=== PATIENT | male | born 1985 | race Asian ===

== ENCOUNTER 2019-04-23 13:19 | Emergency (ER) | payer OTHER ==
[2019-04-23 13:35] VITALS: BP 120/75
--- NOTE | 2019-04-23 13:35 | ED Physician Documentation ---
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 He is able to walk and bear weight with a limp. No other injuries.) Review of Systems Constitutional: reports: Reviewed and negative Throat: reports: Reviewed and negative Cardiac: reports: Reviewed and negative Respiratory: reports: Reviewed and negative PD PAST MEDICAL HISTORY - Present Medications Home Medications: Ambulatory Orders Medication Instructions Recorded Confirmed No Known Home Medications 04/23/19 04/23/19 - Allergies Allergies/Adverse Reactions: Allergies Allergy/AdvReac Type Severity Reaction Status Date / Time No Known Drug Allergies Allergy Verified 04/23/19 13:34 PD ED PE NORMAL - Vitals Vital signs reviewed: Yes - General General: Alert and oriented X 3, No acute distress - Extremities Extremities: Other (There is an abrasion with mild tenderness over the mid first metatarsal dorsally and some swelling there.) - Neuro Neuro: Alert and oriented X 3, Normal speech Results - Vitals Vitals: Vital Signs - 24 hr 04/23/19 13:31 Temperature 36.7 C Heart Rate 62 Respiratory 14 Rate Blood Pressure 120/75 O2 Saturation 100 Oxygen O2 Source Room air - Rads (name of study) L foot 3v Radiology: EMP read contemporaneously (normal) Departure - Departure Disposition: 01 Home, Self Care Clinical Impression: Crushing injury of foot, left Qualifiers: Encounter type: initial encounter Qualified Code(s): S97.82XA - Crushing injury of left foot, initial encounter Condition: Good Record reviewed to determine appropriate education?: Yes Instructions: ED Crush Injury Toe No Fx Comments: [place] not [place]. Return for new or worsening symptoms. Forms: Activity restrictions
--- NOTE | 2019-04-23 14:40 | XRAY Report ---
Reason: foot injury Procedure Date: 04/23/2019 Accession Number: [id number] / [id number] Procedure: XR - Foot 3 View LT CPT Code: FULL RESULT: EXAM: LEFT FOOT RADIOGRAPHY EXAM DATE: 04/23/2019 02:09 PM. CLINICAL HISTORY: Foot injury. COMPARISON: None. TECHNIQUE: 3 views. FINDINGS: Bones: Normal. No fractures or bone lesions. Joints: Normal. No subluxations. Soft Tissues: Normal. No soft tissue swelling. IMPRESSION: Normal foot radiography. [facility]
== END 2019-04-23 14:57 | disposition home or self-care (01) ==
LOC: ED 13:19
DX: S90.412A Abrasion, left great toe, initial encounter (principal); W23.0XXA Caught, crushed, jammed, or pinched between moving objects, initial encounter; Y93.89 Activity, other specified; Y92.139 Unspecified place military base as the place of occurrence of the external cause; Y99.1 Military activity
CPT/HCPCS: 99282; 99283